=== PATIENT | male | born 1955 | race Caucasian/White ===

== ENCOUNTER → 2023-02-07 09:22 | Outpatient (CLI) | payer MEDICARE, SELFPAY ==
--- NOTE | ~2023-02-07 | MR_ITS ---
MRI of the lumbar spine Clinical History: Back pain Technique: Axial T2-weighted images, and sagittal T1-weighted, T2-weighted, and and T2 fat-sat images were acquired. Findings: There are bilateral L5 pars interarticularis defects, with 12-13 mm anterolisthesis of L5 o abdiaziz S1. There is 3 mm anterolisthesis of L3 over L4. There is 2 mm retrolisthesis of L4 over L5. No a cute fracture seen. At L1-L2, there is moderate to advanced degenerative disc narrowing. Disc bulge and moderate facet ar thropathy are present, with moderate to severe central canal stenosis/thecal sac compression. There i s mild to moderate bilateral neural foraminal narrowing. At L2-L3, there is disc bulge and severe facet arthropathy, resulting in moderate to advanced central canal stenosis/thecal sac compression. There is moderate to advanced right neural foraminal narrowin g. Left neural foramen may be minimally narrowed. At L3-L4, disc bulge and severe facet arthropathy result in severe spinal canal stenosis/thecal sac c ompression. There is moderate to severe right neural foraminal narrowing. Left neural foramen preserv ed. At L4-L5, there is diffuse disc bulge with moderate facet arthropathy, resulting in probable right la teral recess stenosis. There is moderate to severe bilateral neural foraminal narrowing. At L5-S1, there is diffuse disc bulge/uncovering with severe facet arthropathy. No wendi central dominga l stenosis. There is severe bilateral neural foraminal compromise. Paravertebral soft tissues are unremarkable. Impression: Bilateral L5 pars interarticularis defects, with 12-13 mm anterolisthesis of L5 over S1. Severe degenerative spondylosis throughout the lumbar spine otherwise, as detailed above, with multil evel spinal canal stenosis/thecal sac compression and multilevel neural foraminal narrowing. Additional 3 mm anterolisthesis of L3 over L4. 2 mm retrolisthesis of L4 over L5. Reviewed, dictated and finalized at [facility]. Impression: Bilateral L5 pars interarticularis defects, with 12-13 mm anterolisthesis of L5 over S1. Severe degenerative spondylosis throughout the lumbar spine otherwise, as detai led above, with multilevel spinal canal stenosis/thecal sac compression and mul tilevel neural foraminal narrowing. Additional 3 mm anterolisthesis of L3 over L4. 2 mm retrolisthesis of L4 over L5.
--- NOTE | ~2023-02-07 | MR_ITS ---
MRI of the cervical spine Clinical History: Cervicalgia Technique: Axial T2-weighted and gradient images, and sagittal T1-weighted, T2-weighted, and STIR ace ges were acquired. Findings: There is no fracture or subluxation of the cervical spine. Vertebral bodies maintain normal height and alignment. No suspicious bone marrow signal abnormality evident. At C2-C3, there is no disc bulge or herniation. There is left neural foraminal narrowing, likely rela jomar to left facet arthropathy. Right neural foramen preserved. No central canal stenosis or cord comp ression. At C3-C4, there is mild disc osteophyte complex. There is mild bilateral facet arthropathy. There is probable bilateral neural foraminal narrowing, left worse than right. No central canal stenosis or co rd compression. At C4-C5, there is bilateral facet arthropathy with bilateral neural foraminal narrowing. There is mi nimal disc osteophyte complex. No wendi canal stenosis or cord compression. At C5-C6, there is disc osteophyte complex with mild flattening the ventral cord. There is facet arth ropathy bilaterally with bilateral neural foraminal narrowing. At C6-C7, there is disc osteophyte complex, resulting in mild ventral cord compression and mild canal stenosis. There is bilateral neural foraminal narrowing, right worse than left, with mild facet arth ropathy. No abnormal signal seen in the spinal cord. Paravertebral soft tissues are unremarkable. Impression: Moderate degenerative spondylosis, as above, worst at C5-C6 and C6-C7. Reviewed, dictated and finalized at [facility]. Impression: Moderate degenerative spondylosis, as above, worst at C5-C6 and C6-C7.
== END ==
PROVIDERS: PCP Nurse Practitioner; Visit Provider Nurse Practitioner
DX: M47.892 Other spondylosis, cervical region (principal); M47.896 Other spondylosis, lumbar region
CPT/HCPCS: 72141; 72148

== ENCOUNTER 2023-02-16 02:33 | Day surgery (SDC) | payer MEDICARE, SELFPAY ==
[2023-02-03 13:57] VITALS: BMI 26.7
[2023-02-16 06:58] VITALS: BP 145/100; PULSE 95; RESP 18; TEMP 36.4; O2SAT 100; BMI 25.7
[2023-02-16] MEDS: LACTATED RINGERS 1,000 ML 150 ML IV CONT (07:29)
--- NOTE | 2023-02-16 07:46 | P.HP_ITS ---
History of Present Illness History of Present Illness Consent: Risks, benefits, and alternatives have been discussed and questions answered. Patient agrees to proceed with procedure. Chief complaint: positive cologuard Narrative: Migue Bazan is a 67 year old male Presents for screening colonoscopy. Patient's current weight appetite and bowel movements are normal. Patient denies abdominal pain. He has had no bleeding. Family history noncontributory. Recent Cologuard test was found to be positive. Review of Systems Review of Systems: Review of systems noncontributory. [facility] Family History Family History (Updated 12/19/13 @ 07:13 by DOCTOR UNKNOWN) Father Hypertension Sibling Family history of malignant neoplasm of kidney Family history of malignant neoplasm Social History Social History Smoking status: Former smoker Tobacco type: cigarettes Alcohol intake: never Substance use: current Substance use type: marijuana Last use: Daily Living arrangements: with family Spiritual care concerns: No Meds Home Medications and Allergies Home Medications Medication Instructions Recorded Confirmed Type calcium 600 mg capsule 600 mg PO DAILY 02/03/23 02/03/23 History cetirizine 10 mg tablet (Zyrtec) 10 mg PO DAILY 02/03/23 02/03/23 History krill 500 mg-omega-3 150 mg-dha 45 1 cap PO DAILY 02/03/23 02/03/23 History mg-epa 76 [id number] capsule (krill oil) magnesium 500 mg tablet 500 mg PO DAILY 02/03/23 02/03/23 History melatonin 5 mg tablet 5 mg PO HS 02/03/23 02/03/23 History multivitamin with minerals-folic 1 tablet PO DAILY 02/03/23 02/03/23 History acid 0.4 mg tablet Allergies Allergy/AdvReac Type Severity Reaction Status Date / Time ciprofloxacin Allergy Unknown Other Verified 02/03/23 13:58 Quinolones AdvReac Mild Nervousness Verified 02/15/23 14:49 Vital Signs Vital Signs - 24 hr 02/16/23 06:58 Temperature 97.6 F Pulse Rate 95 Respiratory Rate 18 Blood Pressure 145/100 H Pulse Oximetry 100 Oxygen Delivery Room Air Exam Narrative: Physical exam reveals patient to be alert. Vital signs stable. HEENT exam is unremarkable. Patient is anicteric. Lungs are clear to auscultation and percussion. Heart is without murmur or extra sounds. Abdomen bowel sounds are present soft nontender with no organomegaly. Digital external rectal exam normal. Assessment and Plan Assessment and plan (1) Positive colorectal cancer screening using Cologuard test: Code(s): R19.5 - Other fecal abnormalities Status: Acute Assessment and Plan: Patient presents for screening colonoscopy. Recent Cologuard test was positiv e. Further recommendations may be given after endoscopy.
--- NOTE | 2023-02-16 08:03 | P.PNAN_ITS ---
Anes - Initial Pre Proc Eval Procedure: Operation Date: 02/16/23 08:30 Proposed Procedures p Colonoscopy - Eddie Collier MD Date/Time: 02/16/23 08:03 Surgeon: Eddie Collier MD Pre Op Diagnosis: positive cologuard Patient Data Age: 67 Gender: M Height: 1.8 m Weight: 83.8 kg Last Vital Signs Temp 97.6 F 02/16/23 06:58 Pulse 95 02/16/23 06:58 Resp 18 02/16/23 06:58 BP 145/100 H 02/16/23 06:58 Pulse Ox 100 02/16/23 06:58 O2 Del Method Room Air 02/16/23 06:58 Allergies Allergy/AdvReac Type Severity Reaction Status Date / Time ciprofloxacin Allergy Unknown Other Verified 02/03/23 13:58 Quinolones AdvReac Mild Nervousness Verified 02/15/23 14:49 Home Medications Medication Instructions Recorded Confirmed Type calcium 600 mg capsule 600 mg PO DAILY 02/03/23 02/03/23 History cetirizine 10 mg tablet (Zyrtec) 10 mg PO DAILY 02/03/23 02/03/23 History krill 500 mg-omega-3 150 mg-dha 45 1 cap PO DAILY 02/03/23 02/03/23 History mg-epa 75 [id number] capsule (krill oil) magnesium 500 mg tablet 500 mg PO DAILY 02/03/23 02/03/23 History melatonin 5 mg tablet 5 mg PO HS 02/03/23 02/03/23 History multivitamin with minerals-folic 1 tablet PO DAILY 02/03/23 02/03/23 History acid 0.4 mg tablet Patient hx anesthesia problems: none Family hx anesthesia problems: none Results Review: All pre-operative results and documents have been reviewed as part of the pre- operative evaluation. [facility] Family History Family History (Updated 12/19/13 @ 07:13 by DOCTOR UNKNOWN) Father Hypertension Sibling Family history of malignant neoplasm of kidney Family history of malignant neoplasm Social History Social History Smoking status: Former smoker Tobacco type: cigarettes Alcohol intake: never Substance use: current Substance use type: marijuana Last use: Daily Living arrangements: with family Spiritual care concerns: No Anes - Eval Final PreProcedure Day of Procedure 02/16/23 08:03 Patient weight: normal Heart: regular rate and rhythm Lungs: clear to auscultation Airway: Mallampati scale class II Neurological: alert and oriented Last oral intake: >/= 8 hours ASA classification: II Emergent: no Anesthetic plan: proceed Anesthesia type and monitoring: general GIVS and standard monitoring Results Review: All pre-operative results and documents have been reviewed as part of the pre- operative evaluation. Informed Consent: The patient's anesthetic plan and its attendant risks and benefits were discussed with the patient/family/POA. Questions were solicited and answers provided to the satisfaction of the patient/family/POA.
[2023-02-16 08:55] VITALS: BP 123/75; PULSE 77; RESP 16; O2SAT 99
[2023-02-16 09:05] VITALS: BP 122/87; PULSE 78; RESP 16; O2SAT 100
[2023-02-16 09:15] VITALS: BP 120/86; PULSE 74; RESP 18; O2SAT 100
== END 2023-02-16 09:26 | disposition home or self-care (01) ==
PROVIDERS: PCP Nurse Practitioner; Visit Provider Internal Medicine Gastroenterology
PROC: 0DJD8ZZ Inspection of Lower Intestinal Tract, Via Natural or Artificial Opening Endoscopic (ICD-10-PCS; CPT 45378; principal; 2023-02-16 08:30)
DX: R19.5 Other fecal abnormalities (principal); K64.8 Other hemorrhoids; K57.30 Diverticulosis of large intestine without perforation or abscess without bleeding; F12.90 Cannabis use, unspecified, uncomplicated; Z87.891 Personal history of nicotine dependence
CPT/HCPCS: 45378; J2704; J7120

== ENCOUNTER 2024-04-02 09:26 | Outpatient (CLI) | payer MEDICARE, SELFPAY ==
--- NOTE | ~2024-04-02 | US_ITS ---
EXAMINATION: US aorta [facility] DATE: 04/02/2024 15:23 KARDEX CLERK INDICATION: Aortic aneurysm screening TECHNIQUE: Grayscale, color Doppler, and pulsed Doppler images of the aorta and common iliac arteries were obtained. COMPARISON: None. FINDINGS: The proximal aorta measures 2.4 cm greatest sagittal dimension. The mid aorta measures 2.3 cm greates t sagittal dimension. The distal aorta measures 2.1 cm greatest sagittal dimension. The right common internal iliac artery measures 1.4 cm. The left common iliac artery measures 1.3 cm. IMPRESSION: 1. Mild atherosclerosis with normal caliber aorta. No aneurysm. Reviewed, dictated and finalized at location [facility]. EX CLERK
== END 2024-04-02 09:27 | disposition home or self-care (01) ==
LOC: MICIMG 09:28
PROVIDERS: PCP Family Medicine; Visit Provider Family Medicine
DX: Z13.6 Encounter for screening for cardiovascular disorders (principal); I70.0 Atherosclerosis of aorta
CPT/HCPCS: 76706

== ENCOUNTER 2024-08-15 10:02 | Outpatient (CLI) | payer MEDICARE, SELFPAY ==
--- NOTE | ~2024-08-15 | MR_ITS ---
MRI of the left knee Clinical history: Injury Technique: Coronal proton density and proton density-weighted images, sagittal proton-density and T2 fat-sat images, and axial proton-density fat-saturated images were acquired. Findings: Suspected high-grade, possible complete tear at the right proximal ACL at the region of the intercondylar notch, versus ACL sprain. Posterior cruciate ligament intact. Medial collateral ligame nt and the lateral collateral ligament complex are intact. Popliteus tendon is intact. No lateral meniscal tear seen. There is complex tearing of the posterior horn and body of the medial meniscus with a predominantly vertical tear present. 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 There is mild chond romalacia the femoral trochlea. There is patchy mild to moderate chondral malacia the medial femoral condyle. There is mild chondromalacia at the lateral joint line. Extensor mechanism is intact. Large joint effusion present. No Thompson's cyst. Impression: Suspected tear at the proximal ACL versus ACL sprain. Correlate for ACL laxity. Complex tearing of the posterior horn and body medial meniscus, with a predominant vertical tear pres ent. Degenerative change, as above, worst involving the patella. Large joint effusion. Reviewed, dictated and finalized at location . Impression: Suspected tear at the proximal ACL versus ACL sprain. Correlate for ACL laxity. Complex tearing of the posterior horn and body medial meniscus, with a predomin ant vertical tear present. Degenerative change, as above, worst involving the patella. Large joint effusion.
== END 2024-08-15 10:03 | disposition home or self-care (01) ==
LOC: MICIMG 10:03
PROVIDERS: PCP Family Medicine; Visit Provider Family Medicine
DX: S83.232A Complex tear of medial meniscus, current injury, left knee, initial encounter (principal); X58.XXXA Exposure to other specified factors, initial encounter; M25.462 Effusion, left knee
CPT/HCPCS: 73721